=== PATIENT | female | born 1965 | race Caucasian/White ===

== ENCOUNTER 2024-04-26 20:54 | Emergency (ER) | payer BC ==
[2024-04-26 21:05] VITALS: RESP 18
--- NOTE | 2024-04-26 21:31 | ED ---
Extremity Problem HPI - General Chief complaint: Extremity Injury, Upper Stated complaint: Left Upper Arm Pain Time Seen by Provider: 04/26/24 21:24 Source: patient, RN notes reviewed, old records reviewed Mode of arrival: ambulatory Limitations: no limitations - History of Present Illness Initial comments: This is a 58-year-old female to the ER for evaluation of severe left shoulder pain inability to move left arm without new trauma. Patient's initial injury occurred about 4 months ago and has had severe pain and then left arm since. Patient had a elbow fracture with multiple torn ligaments of the shoulder. Rehabilitation has been improving but patient moved to pick something up tonight and the pain was significant severe and sudden onset MD Complaint: extremity pain, extremity swelling, joint swelling, joint pain -: hour(s) Location: left, upper extremity, elbow Radiation: proximal Severity scale (1-10): 10 Quality: sharp Consistency: constant Improves with: nothing, immobilization Associated Symptoms: denies other symptoms - Related Data Allergies Allergy/AdvReac Type Severity Reaction Status Date / Time No Known Allergies Allergy Verified 04/26/24 21:06 Review of Systems ROS Statement: Those systems with pertinent positive or pertinent negative responses have been documented in the HPI. ROS Other: All systems not noted in ROS Statement are negative. Past Medical History Past Medical History: Asthma, Hypertension History of Any Multi-Drug Resistant Organisms: None Reported Past Surgical History: No Surgical Hx Reported, Hysterectomy, Orthopedic Surgery Past Psychological History: Anxiety Smoking Status: Current every day smoker Past Alcohol Use History: None Reported Past Drug Use History: None Reported General Exam Limitations: no limitations Course Vital Signs 04/26/24 04/26/24 21:02 22:23 Temperature 98.0 F 97.9 F Pulse Rate 83 92 Respiratory 18 18 Rate Blood Pressure 147/82 140/91 O2 Sat by Pulse 98 98 Oximetry - Reevaluation(s) Reevaluation #1: Medical records reviewed Reevaluation #2: Patient symptoms unchanged but pain is improved Reevaluation #3: Patient informed of results and questions answered Reevaluation #4: Was pt. sent in by a medical professional or institution (, PA, [employer], urgent care, hospital, or [place] [facility] facility...) When possible be specific @ -no Did you speak to anyone other than the patient for history (EMS, parent, family, police, friend...)? What history was obtained from this source @ -no Did you review nursing and triage notes (agree or disagree)? Why? @ -agree Are old charts reviewed (outside hosp., previous admission, EMS record, old EKG, old radiological studies, urgent care reports/EKG's, [place] [facility] records)? Report findings @ -yes Differential Diagnosis (chest pain, altered mental status, abdominal pain women, abdominal pain men, vaginal bleeding, weakness, fever, dyspnea, syncope, headache, dizziness, GI bleed, back pain, seizure, CVA, palpatations, mental health, musculoskeletal)? @ -prior EKG interpreted by me (3pts min.). @ -no X-rays interpreted by me (1pt min.). @ -yes negative for acute disease CT interpreted by me (1pt min.). @ -no U/S interpreted by me (1pt. min.). @ -no What testing was considered but not performed or refused? (CT, X-rays, U/S, labs)? Why? @ -none What meds were considered but not given or refused? Why? @ -none Did you discuss the management of the patient with other professionals (professionals i.e. , PA, [employer], lab, RT, psych nurse, secondary social studies teacher, control and recovery special tactics, teacher, hospital admissions officer, pillowcase sewer)? Give summary @ -no Was smoking cessation discussed for >3mins.? @ -no Was critical care preformed (if so, how long)? @ -no Were there social determinants of health that impacted care today? How? (Homelessness, low income, unemployed, alcoholism, drug addiction, transportation, low edu. Level, literacy, decrease access to med. care, senior care, rehab)? @ -none Was there de-escalation of care discussed even if they declined (Discuss DNR or withdrawal of care, Hospice)? DNR status @ -no What co-morbidities impacted this encounter? (DM, HTN, Smoking, COPD, CAD, Cancer, CVA, ARF, Chemo, Hep., AIDS, mental health diagnosis, sleep apnea, morbid obesity)? @ -none Was patient admitted / discharged? Hospital course, mention meds given and route, prescriptions, significant lab abnormalities, going to OR and other pertinent info. @ - 58 female to ER for evaluation of acute on chronic shoulder pain. Shoulder pain is resolved here in the ER patient feels well can be discharged home normal x-ray Discharge Undiagnosed new problem with uncertain prognosis? @ -no Drug Therapy requiring intensive monitoring for toxicity (Heparin, Nitro, Insulin, Cardizem)? @ -no Were any procedures done? @ -no Diagnosis/symptom? @ -Chronic shoulder pain Acute, or Chronic, or Acute on Chronic? @ -Acute Uncomplicated (without systemic symptoms) or Complicated (systemic symptoms)? @ -Complicated Side effects of treatment? @ -no Exacerbation, Progression, or Severe Exacerbation? @ -exacerbation Poses a threat to life or bodily function? How? (Chest pain, [place], [place], pneumonia, PE, COPD, DKA, ARF, appy, cholecystitis, CVA, Diverticulitis, Homicidal, Suicidal, threat to staff... and all critical care pts) @ -yes Medical Decision Making - Medical Decision Making 58 female to ER for evaluation of acute on chronic shoulder pain. Shoulder pain is resolved here in the ER patient feels well can be discharged home normal x- ray - Radiology Data Radiology results: report reviewed (X-ray shoulder is negative for acute disease), image reviewed Disposition Clinical Impression: Left shoulder pain, Chronic pain Disposition: HOME SELF-CARE Instructions (If sedation given, give patient instructions): Shoulder Pain (ED) Additional Instructions: Follow up with retail specialist in 1-2 days, or as soon as possible. Return to the ER with any new or worsening symptoms. You may try ice/hot over the area to help with discomfort. Take Tylenol and Motrin as needed for pain control. Is patient prescribed a controlled substance at d/c from ED?: No Referrals: Nonstaff,Physician [Primary Care Provider] - 1-2 days Time of Disposition: 22:00
--- NOTE | 2024-04-26 21:46 | XR ---
Left shoulder HISTORY: Chronic pain. COMPARISON: None TECHNIQUE: 3 views left shoulder were obtained. FINDINGS: There is mild osteoarthritic change of the AC joint. There is no fracture, dislocation or focal intra osseous abnormality. The glenohumeral joint space is well-preserved. 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 [facility], , 04/26/2024 9:44 PM
[2024-04-26] MEDS: diazePAM 5 MG TAB PO STA (21:59)
[2024-04-26] MEDS: diphenhydrAMINE 50 MG CAP PO STA (21:59)
[2024-04-26] MEDS: HYDROmorphone 1 MG/ML 1 ML SYRINGE IM STA (21:59)
[2024-04-26] MEDS: LIDOCAINE 4% PATCH TOPICAL ONE (22:00)
[2024-04-26] MEDS: ACET/COD 300 MG/30 MG STARTER PACK 6 TAB BTL PO STA (22:21)
[2024-04-26] MEDS: IBUPROFEN 600 MG STARTER PACK 4 TAB BTL PO STA (22:22)
[2024-04-26 22:27] VITALS: BP 140/91; PULSE 92; TEMP 97.9
== END 2024-04-26 22:28 | disposition home or self-care (01) ==
LOC: EC 20:54
CPT/HCPCS: 96372; 99283